=== PATIENT | male | born 1980 | race Caucasian/White ===

== ENCOUNTER → 2016-09-27 | Outpatient (CLI) | payer OTHER ==
[~2016-09-27] MED LIST: AMOX875T2 PO; LORA-358 PO
--- NOTE | 2016-09-28 18:02 | DI ---
Indication: ITS.REASON: M79.672 PAIN IN LEFT FOOT PROCEDURE: MRI FOOT LEFT W/O CONTRAST: MRI of the left hindfoot Encounter: Initial Comparison: None Technique: Multiplanar multisequence MR imaging of the left ankle was performed without contrast. Findings: The Achilles tendon appears unremarkable. There is fluid signal seen surrounding the peroneus longus and brevis tendons at and just distal to the level of the ankle likely representing tenosynovitis. The tendons however appear to be intact. The tibialis posterior, flexor digitorum longus, and flexor hallucis longus tendons are intact and appear unremarkable. The anterior and posterior tibiotalar ligaments and anterior and posterior talofibular ligaments are intact. The tibial calcaneal ligament and the calcaneal fibular ligament are intact. The plantar fascia appears unremarkable. No abnormal bone marrow signal changes are seen of the calcaneus, talus bone, distal tibia and fibula, the navicular bone, cuboid, or the cuneiforms. The bases of the metatarsals also have no abnormal bone marrow signal changes. There is a trace of fluid signal seen within the ankle. Impression: Mild tenosynovitis of the peroneus longus and brevis tendons. Otherwise unremarkable. .
== END ==
LOC: IMA.MDS 17:41
PROVIDERS: ATTEND Orthopaedic Surgery Foot and Ankle Surgery
DX: M65.872 Other synovitis and tenosynovitis, left ankle and foot (principal); M79.672 Pain in left foot